=== PATIENT | male | born 1985 | race Caucasian/White ===

== ENCOUNTER 2020-04-22 03:28 | Emergency (ER) | payer OTHER ==
[~2020-04-22] VITALS: Ht 172.7 cm; Wt 79.4 kg
[2020-04-22 03:35] VITALS: BP_SYST 150
[2020-04-22 03:49] VITALS: BP_SYST 147
== END 2020-04-22 03:48 | disposition home or self-care (01) ==
LOC: SED 03:28
DX: Z02.83 Encounter for blood-alcohol and blood-drug test (principal); V49.40XA Driver injured in collision with unspecified motor vehicles in traffic accident, initial encounter; Y93.89 Activity, other specified; Y92.411 Interstate highway as the place of occurrence of the external cause; Y99.8 Other external cause status
CPT/HCPCS: 99283